=== PATIENT | male | born 1965 | race Caucasian/White ===

== ENCOUNTER 2017-07-04 19:48 | Emergency (ER) | payer SELFPAY ==
[2017-07-04 20:04] VITALS: BP 117/82
== END 2017-07-04 19:49 | disposition left against medical advice (07) ==
LOC: EDBD → ED 19:48
DX: R10.9 Unspecified abdominal pain (principal); Z53.21 Procedure and treatment not carried out due to patient leaving prior to being seen by health care provider

== ENCOUNTER 2018-05-24 08:13 | Day surgery (SDC) | payer OTHER ==
[~2018-05-24 08:13] MED LIST: NACL 0.9% 1000 ML 1,000 ML IV SCH
[2018-05-24] MEDS ORDERED: ZOFRAN ONE (10:49)
[2018-05-24] MEDS ORDERED: WATER FOR IRRIG STERILE IR ONE (10:59)
--- NOTE | 2018-05-24 11:40 | Anesthesia Consultation ---
Anesthesia Consult and Med Hx Date of service: 05/24/18 - Airway Anesthetic Teeth Evaluation: Poor, Edentulous ROM Head & Neck: Adequate Mental/Hyoid Distance: Adequate Mallampati Class: Class II Intubation Access Assessment: Probably Good - Pre-Operative Health Status ASA Pre-Surgery Classification: ASA3 Proposed Anesthetic Plan: MAC - Pulmonary Hx Smoking: Yes Hx Asthma: Yes
--- NOTE | 2018-05-24 11:41 | Anesthesia Day of Surgery ---
Anesthesia Day of Surgery - Day of Surgery Patient Examined: Yes Patient H&P Reviewed: Yes Patient is NPO: Yes
[2018-05-24] MEDS ORDERED: DIPRIVAN 10 MG/ML IV ONE ×2 (11:45)
--- NOTE | 2018-05-24 12:11 | Procedure Note ---
Date of procedure: 05/24/18 Pre-op diagnosis: Diarrhea/ H/O Weight Loss Post-op diagnosis: other (R/O Microscopic Colitis/ R/O Ileitis/ Moderate, Right Colon Diverticuli) Procedure: Colonoscopy with Biopsy Anesthesia: MAC Surgeon: JEREMY LAURA Estimated blood loss: minimal Pathology: list Specimen disposition: to lab Condition: stable Disposition: same day (Avoid aspirin and NSAID for 5 days. Encourage fiber intake and encourgae Probiotic (OTC) use as directed and Imodium AD (OTC) use as needed for diarrhea. Follow up in 1 to 2 weeks ([phone]).)
--- NOTE | 2018-05-24 12:16 | Post Anesthesia Evaluation ---
- Post Anesthesia Evaluation Patient Participated: Yes (sleeping) Airway Patent: Yes Stable Respiratory Function: Yes Nausea/Vomiting: No Temp > 96.8F: Yes Pain Manageable: Yes Adequeate Hydration: Yes Anesthesia Complications: No Block Receding Appropriately: Not Applicable Patient on Ventilator: No
--- NOTE | 2018-05-24 12:41 | Operative Report ---
Procedure: Colonoscopy with biopsy. INDICATIONS: This is a 53-year-old white male, who has been having nausea, vomiting, diarrhea and history of weight loss. He said to have had a colonoscopy done by another physician, which he was told that he had Olinda esophagitis. He had a colonoscopy done to assess for his diarrhea and make sure that there was not any associated colitis. DESCRIPTION OF PROCEDURE: Procedure was done after getting informed consent with MAC anesthesia. Initial rectal exam was unremarkable. Instrument was passed through the rectum onto the cecum, which was identified with ileocecal valve and appendiceal orifice. There was also moderate diverticular disease noted in the cecal area. The terminal ileum was intubated, showed normal mucosa. Biopsy was done to rule out for possible ileitis. Other than for the diverticular disease did not show any other significant pathology. Random biopsies were done from the proximal colon, transverse colon, descending colon and sigmoid. Rectum appeared normal on the retroverted view. There was no colon polyps noted endoscopically. There was no evidence of colitis noted. Biopsies were done to rule out for possible microscopic colitis and ileitis and the patient was also noted to have moderate proximal colon diverticular disease. There was minimal bleeding from the biopsy sites. No complications associated with the procedure. ASSESSMENT: Diarrhea, history of weight loss, rule out microscopic colitis, rule out ileitis, moderate proximal colon diverticular disease. No colon polyps, no endoscopic evidence of colitis noted. Again, there was minimal bleeding from the biopsy sites. No complications associated with the procedure. The patient will be asked to take Imodium A-D as well as probiotic as an [id number] medication as needed. Once the patient comes to the office samples of Rupa will be given to him to help treat his symptoms of diarrhea. The patient will wait for the biopsy results and further treatment will be adjusted as per the biopsy findings. RN, Therese Romo was in the room for the entirety of the procedure. JOB# [id number] RUPALI/MEMO GUZMAN
[2018-05-24 12:48] VITALS: BP 130/75
== END 2018-05-24 08:14 | disposition home or self-care (01) ==
LOC: GIO 08:13
DX: K57.30 Diverticulosis of large intestine without perforation or abscess without bleeding (principal); J45.909 Unspecified asthma, uncomplicated; K63.89 Other specified diseases of intestine; K21.9 Gastro-esophageal reflux disease without esophagitis; F17.210 Nicotine dependence, cigarettes, uncomplicated; E89.0 Postprocedural hypothyroidism; Z98.890 Other specified postprocedural states; Z79.899 Other long term (current) drug therapy
CPT/HCPCS: 45380; 88305; J2405; J2704; J7030

== ENCOUNTER 2018-06-28 09:30 | Day surgery (SDC) | payer OTHER ==
[2018-06-28] MEDS ORDERED: NACL 0.9% 1000 ML 1,000 ML IV SCH (10:30)
[2018-06-28] MEDS ORDERED: DIPRIVAN 10 MG/ML IV ONE (11:12)
[2018-06-28] MEDS ORDERED: VERSED ONE (11:13)
--- NOTE | 2018-06-28 11:31 | Anesthesia Day of Surgery ---
Anesthesia Day of Surgery - Day of Surgery Patient Examined: Yes Patient H&P Reviewed: Yes Patient is NPO: Yes Beta Blockers: No Cardiac Clearance: No Pulmonary Clearance: No
--- NOTE | 2018-06-28 11:32 | Anesthesia Consultation ---
Anesthesia Consult and Med Hx - Airway Anesthetic Teeth Evaluation: Good ROM Head & Neck: Adequate Mental/Hyoid Distance: Adequate Mallampati Class: Class II Intubation Access Assessment: Probably Good - Pulmonary Exam CTA: Yes - Pre-Operative Health Status ASA Pre-Surgery Classification: ASA2 Proposed Anesthetic Plan: MAC - Pulmonary Hx Smoking: Yes Hx Asthma: Yes - Hematic Hx Anemia: Yes
--- NOTE | 2018-06-28 11:37 | Procedure Note ---
Date of procedure: 06/28/18 Pre-op diagnosis: Abdominal Pain/Nausea and Vomiting Post-op diagnosis: other (Moderate, Olinda Esophagitis/ Gastric Erosion/ Gastritis/ R/O Celiac Disease) Procedure: EGD with Biopsy Anesthesia: MAC Surgeon: JEREMY LAURA Estimated blood loss: minimal Pathology: list Specimen disposition: to lab Condition: critical Disposition: same day (Treat with PPI,antiemetic and Fluconazole. Avoid aspirin and NSAID for 5 days and follow up in 1 to 2 weeks ([phone]).)
[2018-06-28 12:05] VITALS: BP 115/65
--- NOTE | 2018-06-28 12:57 | Operative Report ---
PROCEDURE: EGD WITH BIOPSY The patient underwent an EGD at [facility] on 06/28/2018. INDICATIONS FOR PROCEDURE: This is a 53-year-old white male complaining of persistent nausea, vomiting and history of weight loss. Colonoscopy done previously was essentially unremarkable other than for the presence of some diverticular disease involving the right colon. It did not show any evidence of microscopic colitis or ileitis. He gives a prior history of Olinda esophagitis from an EGD that was done about a year back. DESCRIPTION OF PROCEDURE: EGD was done with MAC anesthesia. Instrument was passed through the hypopharynx into the esophagus, which showed moderate Olinda esophagitis. Photo documentation and biopsy was obtained. The stomach showed antral erosion. Biopsy was done from the gastric antrum, angularis incisura and gastric body. Pylorus is patent. Duodenum in the first and the second portion appeared normal. Biopsy was done from the second part to rule out for possible celiac disease. There was minimal bleeding from the biopsy sites, no complications associated with the procedure. ASSESSMENT: Abdominal pain, nausea, vomiting, weight loss, moderate Olinda esophagitis, gastric erosion, gastritis, rule out celiac disease. There was minimal bleeding from the biopsy sites and no complications associated with the procedure. PLAN: Plan is to treat the patient with antiemetic, PPI and fluconazole, have the patient avoid aspirin and aspirin-related products for the next few days and follow up in the office in 1-2 weeks' time. RNTherese was in the room throughout the entirety of the procedure. JOB# [id number] RUPALI/MEMO
== END 2018-06-28 09:31 | disposition home or self-care (01) ==
LOC: GIO 09:30
DX: K29.50 Unspecified chronic gastritis without bleeding (principal); K21.0 Gastro-esophageal reflux disease with esophagitis; F17.210 Nicotine dependence, cigarettes, uncomplicated; J45.909 Unspecified asthma, uncomplicated; E89.0 Postprocedural hypothyroidism; Z79.899 Other long term (current) drug therapy; Z98.890 Other specified postprocedural states; Z86.2 Personal history of diseases of the blood and blood-forming organs and certain disorders involving the immune mechanism
CPT/HCPCS: 43239; 88305; 88312; 88342; J2250; J2704; J7030